=== PATIENT | male | born 1940 | race Caucasian/White ===

== ENCOUNTER → 2016-11-24 | Outpatient (CLI) | payer OTHER ==
--- NOTE | 2016-11-27 12:51 | DIAGNOSTIC IMAGING REPORT ---
REFERRING PHYSICIAN/PROVIDER: Jimmy Recinos MD CONSULTING COMPUTER GAME DESIGNER: Jose Mcknight MD PROCEDURE: M-mode 2D echocardiography with spectral and color flow Doppler INDICATION: HYPERTENSION; HEART DISEASE W/O HEART FAILURE Procedure: A two-dimensional transthoracic echocardiogram with color flow and Doppler was performed. The study quality was technically adequate. The patient was in atrial fibrillation with controlled ventricular rate during the exam. Left Ventricle: Left ventricular size is at the upper limits of normal. Left ventricular wall thickness is mildly increased. Left ventricular systolic function is moderately reduced. Left ventricular ejection fraction is estimated to be 35%. Thin and bright LV wall segment suggests a myocardial infarction. The E/E' is normal. Right Ventricle: The right ventricle is normal in size and function. Atria: The left atrium is mildly dilated. Right atrial size is normal. A patent foramen ovale is suspected. Mitral Valve: The mitral valve is normal in structure and function. There is trace mitral regurgitation. Aortic Valve: The aortic valve is trileaflet. The aortic valve opens well. There is mild aortic valve sclerosis. There is trace aortic regurgitation. Tricuspid Valve: The tricuspid valve is normal in structure and function. No tricuspid regurgitation. Pulmonary artery pressures cannot be estimated because of the lack of a measurable TR jet velocity. Pulmonic Valve: The pulmonic valve is not well seen, but is grossly normal. There is a trace or physiologic amount of pulmonic regurgitation. There is no significant valvular heart disease. Great Vessels: The aortic root is mildly dilated. The ascending aorta is mildly enlarged. It is measured at 3.9 cm. The IVC is of normal diameter and collapses greater than 50% with a sniff. This suggests a low right atrial pressure of 3 mm Hg. Pericardium/ Pleura There is no pericardial effusion. IMPRESSION: Left ventricular size is at the upper limits of normal. Left ventricular wall thickness is mildly increased. Left ventricular systolic function is moderately reduced. The ejection fraction is estimated to be 35%. There is a large sized inferior, posterior, and lateral wall motion abnormality with hypokinesis to akinesis of the segments. Thin and bright LV wall segment suggests a myocardial infarction. The right ventricle is normal in size and function. Pulmonary artery pressures cannot be estimated because of the lack of a measurable TR jet velocity. The left atrium is mildly dilated. Right atrial size is normal. There is no significant valvular heart disease. The aortic root is mildly dilated. The ascending aorta is mildly enlarged. It is measured at 3.9 cm.
== END ==
LOC: US SRH 12:44
DX: R94.31 Abnormal electrocardiogram [ECG] [EKG] (principal); I10 Essential (primary) hypertension